=== PATIENT | female | born 1950 | race Caucasian/White ===

== ENCOUNTER 2017-12-31 11:15 | Day surgery (SDC) | payer MEDICARE, OTHER ==
[2017-12-31] MEDS ORDERED: PROPOFOL 20 ML (14:07)
== END 2017-12-31 16:24 | disposition home or self-care (01) ==
LOC: GIL 11:15
DX: K29.30 Chronic superficial gastritis without bleeding (principal); E78.5 Hyperlipidemia, unspecified; I10 Essential (primary) hypertension
CPT/HCPCS: 43239; 88305; 88312